=== PATIENT | female | born 1945 | race Caucasian/White ===

== ENCOUNTER 2023-02-03 09:11 | Emergency (ER) | payer MEDICARE, SELFPAY ==
--- NOTE | ~2023-02-03 | XR_ITS ---
XR chest 2V DATE: 02/03/2023 09:41 INDICATION: Cough TECHNIQUE: 2 views COMPARISON: None FINDINGS: Normal heart size. There is aortic calcification and unfolding. No hilar or mediastinal enl argement. Bibasilar discoid atelectasis or scarring, more prominent on the right. The lungs otherwise appear cl ear of infiltrate or consolidation. Slight right pleural effusion is suggested. No pulmonary vascular congestion or pneumothorax. Levoscoliosis and degenerative spurring of the thoracic spine. Osteopenia. IMPRESSION: Bibasilar discoid atelectasis or scarring, greater on the right Reviewed, dictated and finalized at location B. UNICATIONS ENGINEERING TECHNICIAN
--- NOTE | 2023-02-03 09:21 | ED.URI ---
HPI - URI/Sore Throat General Chief Complaint: Upper Respiratory Infection Stated Complaint: Cough/Sore Throat Time Seen by Provider: 02/03/23 09:21 Source: patient and RN notes reviewed History of Present Illness HPI Narrative: Patient is 7-year-old female who presents to urgent care with complaints of cough congestion sore throat hoarseness headache bilateral eyes added. Patient states started Wednesday to take care for cough medication. She has had. Denies any fever, nausea or vomiting. States her cough is productive. Denies any shortness of breath or chest pain. Patient is a nonsmoker. No other acute complaints. No acute distress noted. Patient aware of the plan of care. Some parts of this dictation were generated by voice recognition software and may contain typographical and/or grammatical inaccuracies. Related Data Home Medications Medication Instructions Recorded Confirmed amlodipine 10 mg tablet 10 mg PO DAILY 02/03/23 02/03/23 atorvastatin 20 mg tablet 20 mg PO DAILY 02/03/23 02/03/23 dapagliflozin 10 mg tablet 10 mg PO DAILY 02/03/23 02/03/23 ([facility]) glipizide 10 mg tablet 10 mg PO BID 02/03/23 02/03/23 lisinopril 40 mg tablet 40 mg PO DAILY 02/03/23 02/03/23 metformin 500 mg tablet 500 mg PO DAILY 02/03/23 02/03/23 omeprazole 20 mg capsule,delayed 20 mg PO DAILY 02/03/23 02/03/23 release Allergies Allergy/AdvReac Type Severity Reaction Status Date / Time No Known Allergies Allergy Verified 02/03/23 09:33 Review of Systems Review of Systems: CONSTITUTIONAL: Denies fever, chills, or sweats. EYES: Reports of bilateral eye drainage and itchiness ENT: Reports congestion postnasal drainage CARDIOVASCULAR: Denies chest pain, palpitations, or edema. RESPIRATORY: Reports productive cough without dyspnea GASTROINTESTINAL: Denies abdominal pain, nausea, vomiting, or diarrhea. GENITOURINARY: Denies dysuria or hematuria. SKIN: Denies rash or itching. MUSCULOSKELETAL: Denies back pain, joint pain, or myalgia. NEUROLOGIC: Denies headache, numbness, or weakness. All other systems reviewed are negative, except as documented in HPI. PMFSH Comments At the time of my signature, I reviewed and agree with the nursing past medical, surgical, social, and family history. There is no relevant family history pertinent to the patient complaint. Exam Narrative: GENERAL: This is a well-nourished, well-developed patient, in no apparent distress. HEAD: normocephalic, atraumatic. EYES: PERRL. Sclera clear/white. Bilateral injected conjunctiva with clear to yellow matting/drainage EARS: External ears normal, auditory canals clear and without drainage, TMs normal without perforation. Hearing grossly intact. NOSE: External nose normal with no obvious nasal discharge. Bilateral has had yellow rhinorrhea THROAT: Mucous membranes moist, posterior pharynx clear. Moderate postnasal drainage NECK: Neck supple, non-tender without lymphadenopathy CARDIOVASCULAR: Regular rate and rhythm without murmurs, gallops, or rubs. RESPIRATORY: Clear to auscultation. Diminished bibasilar SKIN: warm, intact with no suspicious lesions or rash, good texture and turgor. NEURO: awake, alert, and oriented to person, place and time. There were no obvious focal neurologic abnormalities. EXTREMITIES: No clubbing, cyanosis, or edema. Course Course Level of Care: Express Care Visit Vital Signs Vital signs: Vital Signs Temperature 98.3 F 02/03/23 09:23 Pulse Rate 118 H 02/03/23 09:23 Respiratory Rate 20 02/03/23 09:23 Blood Pressure 170/76 H 02/03/23 09:23 Pulse Oximetry 96 02/03/23 09:23 Oxygen Delivery Room Air 02/03/23 09:23 Temperature 98.3 F 02/03/23 09:23 Pulse Rate 118 H 02/03/23 09:23 Respiratory Rate 20 02/03/23 09:23 Blood Pressure 170/76 H 02/03/23 09:23 Pulse Oximetry 96 02/03/23 09:23 Oxygen Delivery Room Air 02/03/23 09:23 Reviewed- Patient is informed that they may have pre-hypertension o
[2023-02-03 09:23] VITALS: BP 170/76; PULSE 118; RESP 20; TEMP 36.8; O2SAT 96
== END 2023-02-03 10:03 | disposition home or self-care (01) ==
PROVIDERS: Emergency Provider Nurse Practitioner Family; PCP Internal Medicine
DX: J40 Bronchitis, not specified as acute or chronic (principal); J32.9 Chronic sinusitis, unspecified
CPT/HCPCS: 71046; 87081; 87880; 99203; G0463

== ENCOUNTER 2023-04-30 08:49 | Emergency (ER) | payer MEDICARE, SELFPAY ==
--- NOTE | 2023-04-30 09:05 | ED.ABDPAIN ---
HPI - Abdominal Pain General Chief Complaint: Urogenital-Female Stated Complaint: Abdominal Pain/Right Side Source: patient and RN notes reviewed Limitations: no limitations History of Present Illness HPI narrative: Patient is a 77-year-old female who presents to the [facility] with complaints of right lower quadrant abdominal pain and right flank pain starting this morning. The pain continues to worsen in severity. Patient reports some associated nausea without emesis. Denies diarrhea or blood in the stool. She presents with moderately severe right flank pain but denies dysuria, hematuria, frequency. She has notable right-sided CVA tenderness. She denies known fevers but reports sweats and chills. Related Data Home Medications Medication Instructions Recorded Confirmed amlodipine 10 mg tablet 10 mg PO DAILY 02/03/23 02/03/23 atorvastatin 20 mg tablet 20 mg PO DAILY 02/03/23 02/03/23 dapagliflozin 10 mg tablet 10 mg PO DAILY 02/03/23 02/03/23 (Farxiga) glipizide 10 mg tablet 10 mg PO BID 02/03/23 02/03/23 lisinopril 40 mg tablet 40 mg PO DAILY 02/03/23 02/03/23 metformin 500 mg tablet 500 mg PO DAILY 02/03/23 02/03/23 omeprazole 20 mg capsule,delayed 20 mg PO DAILY 02/03/23 02/03/23 release Allergies Allergy/AdvReac Type Severity Reaction Status Date / Time No Known Allergies Allergy Verified 02/03/23 09:33 Review of Systems Review of Systems: CONSTITUTIONAL: Denies fever, but reports sweats and chills. EYES: Denies visual changes, redness, or discharge. ENT: Denies otalgia and sore throat CARDIOVASCULAR: Denies chest pain, palpitations, or edema. RESPIRATORY: Denies cough or dyspnea. GASTROINTESTINAL: reports right lower quadrant abdominal pain and nausea, but denies vomiting, or diarrhea. GENITOURINARY: Denies dysuria or hematuria. Reports right flank pain. SKIN: Denies rash or itching. MUSCULOSKELETAL: Denies back pain, joint pain, or myalgia. NEUROLOGIC: Denies headache, numbness, or weakness. Pertinent positives per HPI. PMFSH Comments At the time of my signature, I reviewed and agree with the nursing past medical, surgical, social, and family history. There is no relevant family history pertinent to the patient complaint. Exam Narrative: GENERAL: This is a well-nourished, well-developed patient, in no apparent distress. HEAD: normocephalic, atraumatic. EYES: Sclera clear/white. Vision is grossly intact. EARS: External ears normal, auditory canals clear and without drainage. Hearing grossly intact. NOSE: External nose normal with no obvious nasal discharge, nares without redness, no rhinorrhea. THROAT: Mucous membranes moist, posterior pharynx clear. NECK: Neck supple, non-tender without lymphadenopathy, masses or thyromegaly. CARDIOVASCULAR: Regular rate and rhythm without murmurs, gallops, or rubs. RESPIRATORY: Clear to auscultation. Breath sounds equal bilaterally. No wheezes, rales, or rhonchi. GASTROINTESTINAL: Abdomen soft and nondistended. Bowel sounds are active. No hepato-splenomegaly, or palpable masses. No guarding. Right lower quadrant tenderness. SKIN: warm, intact with no suspicious lesions or rash, good texture and turgor. NEURO: awake, alert, and oriented to person, place and time. There were no obvious focal neurologic abnormalities. EXTREMITIES: No clubbing, cyanosis, or edema. No joint tenderness, effusion, or edema noted. BACK: Nontender without deformity or crepitance. Right CVA tenderness. Course Course Level of Care: Express Care Visit Vital Signs Vital signs: Reviewed Transfer Transfered to: [facility]) Transportation: Other (private vehicle) Accepting physician: Dr. Thomas MDM - Abdominal Pain MDM Narrative Medical decision making narrative: Patient's urinalysis reveals she is positive for nitrates, indicating urinary tract infection. Blood also present. However, she is having severe tenderness to the right flank and right lower quadrant. She w
[2023-04-30 09:06] VITALS: BP 131/70; PULSE 120; RESP 16; TEMP 36.8; O2SAT 99
== END 2023-04-30 09:19 | disposition short-term general hospital (02) ==
PROVIDERS: Emergency Provider Nurse Practitioner; PCP Internal Medicine
DX: N39.0 Urinary tract infection, site not specified (principal); B96.20 Unspecified Escherichia coli [E. coli] as the cause of diseases classified elsewhere
CPT/HCPCS: 81003; 87077; 87086; 87186; 99213; G0463

== ENCOUNTER 2025-04-27 13:17 | Outpatient (CLI) | payer MEDICARE, SELFPAY ==
--- NOTE | ~2025-04-27 | MR_ITS ---
MRI of the left hip Clinical history: Pain Technique: Coronal T1-weighted, T2-weighted, and proton-density fat-sat images, and axial T1-weighted and proton-density fat-sat images were acquired through the pelvis. Coronal T2-weighted images and c oronal, axial, and sagittal proton-density fat-sat images were acquired through the left hip. Findings: There is no fracture or avascular necrosis of either hip. There is severe left hip joint os teoarthritis, with diffuse high-grade chondromalacia. There is extensive reactive marrow edema and clemente bchondral cystic change involving the left femoral head and the superior left acetabulum. There are p rominent left femoral head neck junction osteophytes. There is probable extensive degenerative tearin g of the left acetabular labrum. Right hip joint space is intact with mild to moderate chondromalacia of the medial aspect of the right hip joint. SI joints are intact. Visualized musculature about the pelvis and left hip is unremarkable. No muscle atrophy or edema. Jus t tendons are intact. No soft tissue mass or fluid collection. 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 Reviewed, dictated and finalized at location .
--- NOTE | ~2025-04-27 | XR_ITS ---
XR hip LT 2V w AP pelvis 04/27/2025 14:28 Indication: Left hip pain Procedure: 3 views left hip Comparison: No prior studies for comparison. Findings: Severe osteoarthritis of the left hip. No fracture, subluxation or dislocation. There is lo wer lumbar spondylosis partially visualized. There is atherosclerosis of the pelvis. Mild osteitis pu bis. Impression: 1: Severe osteoarthritis of the left hip. Reviewed, dictated and finalized at location A. Impression: 1: Severe osteoarthritis of the left hip.
== END 2025-04-27 13:18 | disposition home or self-care (01) ==
PROVIDERS: PCP Internal Medicine; Visit Provider Physician Assistant
DX: M16.12 Unilateral primary osteoarthritis, left hip (principal)
CPT/HCPCS: 73502; 73721

== ENCOUNTER 2025-05-07 11:01 | Emergency (ER) | payer MEDICARE, SELFPAY ==
[2025-05-07 11:06] VITALS: BP 131/60; PULSE 118; RESP 20; TEMP 36.6; O2SAT 96
--- NOTE | 2025-05-07 11:28 | ED.FEMALEGU ---
HPI - Female Genitourinary General Chief complaint: Urogenital-Female Stated complaint: Urinary Problems Time Seen by Provider: 05/07/25 11:33 Source: patient and RN notes reviewed Mode of arrival: ambulatory Limitations: no limitations History of Present Illness HPI Narrative: 79-year-old female presents with concern for urinary tract infection. Reports frequency, dysuria that started yesterday. She reports she finished Bactrim 10 days ago for urinary tract infection that she was seen in the ER for. She reports bilateral low back pain. She denies chills, fever, sweats. Denies nausea vomiting. MD elicited complaint: UTI Related Data Home Medications ?Medication ?Instructions ?Recorded ?Confirmed ?Last Taken ?Type amlodipine 10 mg tablet 10 mg PO DAILY 02/03/23 04/30/23 Unknown History atorvastatin 20 mg tablet 20 mg PO DAILY 02/03/23 04/30/23 Unknown History dapagliflozin propanediol 10 mg 10 mg PO DAILY 02/03/23 04/30/23 Unknown History tablet (Farxiga) glipizide 10 mg tablet 10 mg PO BID 02/03/23 04/30/23 Unknown History lisinopril 40 mg tablet 40 mg PO DAILY 02/03/23 04/30/23 Unknown History metformin 500 mg tablet 500 mg PO DAILY 02/03/23 04/30/23 Unknown History omeprazole 20 mg capsule,delayed 20 mg PO DAILY 02/03/23 04/30/23 Unknown History release Allergies Allergy/AdvReac Type Severity Reaction Status Date / Time No Known Allergies Allergy Verified 05/07/25 11:10 Review of Systems Review of Systems: CONSTITUTIONAL: Denies malaise, chills, sweats, or fever. CARDIOVASCULAR: Denies chest pain, palpitations, or edema. RESPIRATORY: Denies cough or dyspnea. GASTROINTESTINAL: Denies abdominal pain, nausea, vomiting, diarrhea GENITOURINARY: Reports dysuria, frequency, urgency, low back pain. Denies hematuria. SKIN: Denies rash or itching. MUSCULOSKELETAL: Reports back pain. Denies myalgia. All systems reviewed & are unremarkable except as noted in HPI and below PMFSH Comments At time of signature, agree with nursing past medical, surgical, social and family history. There is no relevant family history pertinent to the presenting complaint Exam Narrative: GENERAL: Well-appearing, well-nourished, and in no acute distress. HEAD: Normocephalic. EYES: PERRLA, conjunctivae clear. NECK: Supple. No lymphadenopathy CHEST: Clear to auscultation. No respiratory distress. HEART: Regular rate and rhythm. ABDOMEN: Soft, nontender upon palpation, nondistended, normal active bowel sounds, no palpable or pulsatile masses, no guarding. Bilateral CVA tenderness SKIN: Warm, dry, no rash. NEURO: Alert and oriented x3. PSYCH: Normal mood and affect Course Course Emergency Course: Patient is aware of diagnosis, understands and agrees to treatment plan. Anticipatory guidance given. Patient agrees to follow-up as directed and is aware of reasons to seek care at the emergency department. Portions of this record may have been created with voice recognition software Level of Care: Express Care Visit Vital Signs Vital signs: Vital Signs Temperature 97.8 F 05/07/25 11:06 Pulse Rate 118 H 05/07/25 11:06 Respiratory Rate 20 05/07/25 11:06 Blood Pressure 131/60 05/07/25 11:06 Pulse Oximetry 96 05/07/25 11:06 Oxygen Delivery Room Air 05/07/25 11:06 Temperature 97.8 F 05/07/25 11:06 Pulse Rate 118 H 05/07/25 11:06 Respiratory Rate 20 05/07/25 11:06 Blood Pressure 131/60 05/07/25 11:06 Pulse Oximetry 96 05/07/25 11:06 Oxygen Delivery Room Air 05/07/25 11:06 Reviewed. MDM - Female Genitourinary MDM Narrative Medical decision making narrative: Exam findings and UA show no acute concerns or changes; patient is non-toxic appearing and is in no distress. Patient is appropriate for outpatient treatment and follow-up. Differential Diagnosis Differential diagnosis: Likely urinary tract infection and cystitis Critical Care Time Critical Care Time Critical Care Time: No Discharge Plan Discharge Clinical Impression: Urinary tract infection Patient Disposition: Home Condition: Stable Instructions: Antibiotic Form, Urinary Tract Infection in Older Adults (ED) Additional Instructions: We will send a urine culture to the lab; if the culture identifies an organism that the prescribed antibiotic will not treat, you will receive a phone call from an urgent care staff member and an appropriate antibiotic will be prescribed. -Your symptoms should begin to improve within a day of starting antibiotics. But you should finish all the antibiotic pills you get. Otherwise your infection might come back. -Also recommend: increase water intake. Tylenol/ibuprofen as needed for pain or fever -Follow-up with your primary care provider for urine recheck or seek ER visit if condition worsens with high fever, nausea, vomiting and severe back pain. Patient Language: Algerian Prescriptions: New ciprofloxacin HCl 500 mg tablet 500 mg PO Q12H 7 Days Qty: 14 0RF No Action metformin 500 mg tablet 500 mg PO DAILY atorvastatin 20 mg tablet 20 mg PO DAILY amlodipine 10 mg tablet 10 mg PO DAILY glipizide 10 mg tablet 10 mg PO BID lisinopril 40 mg tablet 40 mg PO DAILY omeprazole 20 mg capsule,delayed release(DR/EC) 20 mg PO DAILY Farxiga 10 mg tablet 10 mg PO DAILY Follow-up/Referrals: Melo,Mina Piña MD [Primary Care Provider] - Time of Disposition: 11:38
[2025-05-07 11:37] LABS: EDUAAPPEAR Cloudy; EDUABILI Negative (Negative); EDUABLOOD Trace (Negative); EDUACOLOR1 Yellow; EDUAGLUCOSE 2+ (Negative); EDUAKETONE Negative (Negative); EDUALEUKO 1+ (Negative); EDUANITRATE Positive (Negative); EDUAPH 5.5; EDUAPROTEIN Negative (Negative); EDUAUROBILI 0.2
--- OUTSIDE RECORDS SUMMARY | 2025-05-07 12:31 | XMS_ITS | Encounter Summary ---
Author Organization [facility] Address [address] [place] [address] Phone Care Team Providers Care Altitude Chamber Technician Name Role Phone Mina Alejo MD Primary Care Provider Jared Dee MD Unavailable Reason for Visit * Reason Comments Medication Refill Encounter Details Date Type Department Care Team (Late st Contact Info) Description 11/16/2020 Refill [facility] - Internal Medicine - [place] [address] [place] [address] Mina Alejo MD [address] [place] [address] Medication Refill Social History Tobacco Use Types Packs/Day Years Used Date Smoking Tobacco: Never Smokeless Tobacco: Never PHQ-2 Answer Date Recorded PHQ-2 Score 0 08/30/2020 Comments No Sex and Gender Information Value Date Recorded Sex Assigned at Not on file Legal Sex Female 3:36 PM CDT Gender Identity Not on file Sexual Orientation Not on file documented as of this encounter Miscellaneous Notes * Telephone Encounter - Tami Alvarez RN - 11/18/2020 8:59 AM CST Please review and sign. SOLDERER documented in this encounter Plan of Treatment Upcoming Encounters Date Type Department Care Team (Late st Contact Info) Description 05/31/2025 10:45 AM CDT Office Visit [facility] - Internal Medicine [facility] [address] [place] [address] Mina Alejo MD [address] [place] [address] documented as of this encounter Visit Diagnoses Not on filedocumented in this encounter Additional Health Concerns Infection Onset Date Last Indicated Resolved Time COVID - 19 04/04/2025 04/04/2025 04/04/2025 1:08 AM CDT Assessment Noted Time PHQ-9 Depression Total Score: 0 08/30/20 20 11:00 AM CDT documented as of this encounter Care Teams Altitude Chamber Technician Relationship Specialty Start Date End Date Mina Alejo MD [address] [place] [address] PCP - General Internal Medicine 06/13/18 Jared Dee MD [id number] [address] Consulting Physician Colon and Rectal Surgery 05/06/22 documented as of this encounter
--- OUTSIDE RECORDS SUMMARY | 2025-05-07 12:31 | XMS_ITS | Encounter Summary ---
Author Organization [facility] Address [address] [place] [address] Phone Care Team Providers Care Pipe Fitter Ammonia Name Role Phone Mina Alejo MD Primary Care Provider [phone] Jared Dee MD Unavailable Encounter Details Date Type Department Care Team (Late st Contact Info) Description 04/12/2025 Results Follow-Up [facility] [address] [place] [address] Ailyn Díaz APRN, AT HOME INDEPENDENT CALL CENTER AGENT [address] [place] [address] Culture, Urine Social History Tobacco Use Types Packs/Day Years Used Date Smoking Tobacco: Never Passive Smoke Exposure: Past Smokeless Tobacco: Never Alcohol Use Standard Drinks/Week Comments Not Currently 0 (1 standard drink = 0.6 oz pur e alcohol) [facility] Utilities Answer Date Recorded In the past 12 months has [employer] electric, gas, oil, or water company threatened to shut off services in your home? No 01/27/2024 Social Connection and Isolation Panel Answer Date Recorded In a typical week, how many times do you talk on the phone with family, friends, or neighbors? More than three times a week 01/27/2024 How often do you get togethe r with friends or relatives? More than three times a week 01/27/2024 How often do you attend [facility] or yarsanism services? More than 4 times per year 01/27/2024 Do you belong to any clubs o r organizations such as oriental orthodox groups, unions, fraternal or athletic groups, or school groups? Yes 01/27/2024 How often do you attend meet ings of the clubs or organizations you belong to? More than 4 times per year 01/27/2024 Are you , , di vorced, , never , or living with a partner? 01/27/2024 AUDIT-C Answer Date Recorded Q1: How often do you have a drink containing alcohol? Never 01/27/2024 Q2: How many drinks containi ng alcohol do you have on a typical day when you are drinking? Patient does not drink Q3: How often do you have si x or more drinks on one occasion? Never 01/27/2024 Overall Financial Resource Strain (CARDIA) Answe r Date Recorded How hard is it for you to pa y for the very basics like food, housing, medical care, and heating? Not hard at all 01/27/2024 PHQ-2 Answer Date Recorded Total Score - Questions 1-9 0 12/2024 [facility] - Occupational Stress Questionnaire Answer Date Recorded Do you feel stress - tense, restless, nervous, or anxious, or unable to sleep at night because your mind is troubled all the time - these days? Not at all 01/27/2024 Exercise Vital Sign Answer Date Recorde d On average, how many days pe r week do you engage in moderate to strenuous exercise (like a brisk walk)? 0 days 01/27/2024 On average, how many minutes do you engage in exercise at this level? 0 min 01/27/2024 Hunger Vital Sign Answer Date Recorded Within the past 12 months, y ou worried that your food would run out before you got the money to buy more. Never true 01/27/20 24 Within the past 12 months, t he food you bought just didn't last and you didn't have money to get more. Never true 01/27/2024 PRAPARE - Transportation Answer Date Re corded In the past 12 months, has l ack of transportation kept you from medical appointments or from getting medications? No 12/31 In the past 12 months, has l ack of transportation kept you from meetings, work, or from getting things needed for daily living? No 01/27/2024 Housing Stability Vital Sign Answer Domenico e Recorded In the last 12 months, was t here a time when you were not able to pay the mortgage or rent on time? No 01/27/2024 In the last 12 months, how many places have you lived? 3 01/27/2024 In the last 12 months, was t here a time when you did not have a steady place to sleep or slept in a jail (including now)? No 01/27/2024 Education Answer Date Recorded What is the highest level of school you have completed or the highest degree you have received? Associate degree: occupational, technical, or vocational program 04/21/2023 Sexually Active Control Partners Comments Not Currently Male Comments No Sex and Gender Information Value Date Recorded Sex Assigned at Not on file Legal Sex Female 3:36 PM CDT Gender Identity Not on file Sexual Orientation Not on file documented as of this encounter Plan of Treatment Upcoming Encounters Date Type Department Care Team (Late st Contact Info) Description 05/31/2025 10:45 AM CDT Office Visit [facility] - Internal Medicine [facility] [address] [place] [address] Mina Alejo MD [address] [place] [address] documented as of this encounter Visit Diagnoses Not on filedocumented in this encounter Additional Health Concerns Assessment Noted Time PHQ-9 Depression Total Score: 0 11/30/19 25 10:21 AM BOLT MAKER documented as of this encounter Care Teams Pipe Fitter Ammonia Relationship Specialty Start Date End Date Mina Alejo MD [address] [place] [address] PCP - General Internal Medicine 06/13/18 Jared Dee MD [address] [address] Consulting Physician Colon and Rectal Surgery 05/06/22 documented as of this encounter
--- OUTSIDE RECORDS SUMMARY | 2025-05-07 12:31 | XMS_ITS | Encounter Summary ---
Author Organization [facility] Address [address] [place] [address] Phone Care Team Providers Care Carpentry Teacher Name Role Phone Mina Alejo MD Primary Care Provider Jared Dee MD Unavailable Reason for Visit * Reason Comments Medication Refill Encounter Details Date Type Department Care Team (Late st Contact Info) Description 12/16/2020 Refill [facility] - [facility] - [place] [address] [place] [address] Mina Alejo MD [address] [place] [address] Medication Refill Social History Tobacco Use Types Packs/Day Years Used Date Smoking Tobacco: Never Smokeless Tobacco: Never PHQ-2 Answer Date Recorded Total Score - Questions 1-9 0 0 03/2021 Comments No Sex and Gender Information Value Date Recorded Sex Assigned at Not on file Legal Sex Female 3:36 PM CDT Gender Identity Not on file Sexual Orientation Not on file COVID-19 Exposure Response Date Recorded In the last month, have you been in contact with someone who was confirmed or suspected to have Coronavirus / COVID-19? No / Unsure 12/03/2020 10:46 AM DATA CENTER OPERATOR documented as of this encounter Miscellaneous Notes * Telephone Encounter - Tami Alvarez RN - 12/17/2020 8:21 AM CST Please review and sign. CENTER OPERATOR documented in this encounter Plan of Treatment Upcoming Encounters Date Type Department Care Team (Late st Contact Info) Description 05/31/2025 10:45 AM CDT Office Visit [facility] - Internal Medicine [facility] [address] [place] [address] Mina Alejo MD [address] [place] [address] documented as of this encounter Visit Diagnoses Not on filedocumented in this encounter Additional Health Concerns Infection Onset Date Last Indicated Resolved Time COVID - 19 04/04/2025 04/04/2025 04/04/2025 1:08 AM CDT Assessment Noted Time PHQ-9 Depression Total Score: 0 12/03/19 11:00 AM DATA CENTER OPERATOR documented as of this encounter Care Teams Carpentry Teacher Relationship Specialty Start Date End Date Mina Alejo MD [address] [place] [address] PCP - General Internal Medicine 06/13/18 Jared Dee MD [address] [address] Consulting Physician Colon and Rectal Surgery 05/06/22 documented as of this encounter
--- OUTSIDE RECORDS SUMMARY | 2025-05-07 12:31 | XMS_ITS | Encounter Summary ---
Author Hub Preferred Language Faroese Marital Status Gnosticist Affiliation Unknown Race White Ethnic Group Not or Lati no Author Organization [facility] Address [address] [place] [address] Phone Care Team Providers Care Heel Seat Flap Stapler Name Role Phone Mina Alejo MD Primary Care Provider Jared Dee MD Unavailable Reason for Referral * Radiology Services (Routine) - Closed Specialty Diagnoses / Procedures Referred By Contac t Referred To Contact Radiology Diagnoses Pre-op testing Procedures EKG 12 LEAD Charlie Bangura MD [address] [place] [address] Phone: tel: fax: Referral ID Status Reason Start Date Expiration Date Visits Re quested Visits Authorized [id number] Closed 10/09/2021 1 1 [place] OFFICE ADMINISTRATOR Encounter Details Date Type Department Care Team (Late st Contact Info) Description 10/09/2021 [facility] 1 [place] [id number] Charlie Bangura MD [address] [place] [address] Pre-op testing (Primary Dx) Social History Tobacco Use Types Packs/Day Years Used Date Smoking Tobacco: Never Smokeless Tobacco: Never Alcohol Use Standard Drinks/Week Comments Not Currently 0 (1 standard drink = 0.6 oz pur e alcohol) PHQ-2 Answer Date Recorded Total Score - Questions 1-9 0 04/29 Sexually Active Control Partners Comments Yes Comments No Sex and Gender Information Value Date Recorded Sex Assigned at Not on file Legal Sex Female 3:36 PM CDT Gender Identity Not on file Sexual Orientation Not on file COVID-19 Exposure Response Date Recorded In the last month, have you been in contact with someone who was confirmed or suspected to have Coronavirus / COVID-19? No / Unsure 10/08/2021 11:37 AM MEDICAL OFFICE ADMINISTRATOR documented as of this encounter Plan of Treatment Upcoming Encounters Date Type Department Care Team (Late st Contact Info) Description 05/31/2025 10:45 AM CDT Office Visit [facility] - Internal Medicine [facility] [address] [place] [address] Mina Alejo MD [address] [address] documented as of this encounter Results * EKG 12 LEAD (10/13/2021 10:48 AM MEDICAL OFFICE ADMINISTRATOR) Ventricular Rate BPM EXTERNAL EKG Atrial Rate BPM EXTERNAL EKG P-R Interval 162 ms EXTERNAL EKG QRS Duration 84 ms EXTERNAL EKG Q-T Duration 318 ms EXTERNAL EKG QTC CALCULATION 406 ms EXTERNAL EKG P [place] 57 degrees EXTERNAL EKG R [place] 66 degrees EXTERNAL EKG T [place] 66 degrees EXTERNAL EKG 10/13/2021 10:4 8 AM MEDICAL OFFICE ADMINISTRATOR Impressions EXTERNAL EKG - 10/14/2021 11:08 AM MEDICAL OFFICE ADMINISTRATOR Sinus rhythm Possible inferior infarct - age undetermined Comparison Summary: No serial comparison made Summary: Abnormal ECG Confirmed by Bernice Baker [id number] on 10/14/2021 11:08:03 AM Narrative Procedure Note Kayleigh Queen MD - 10/14/2021 IMPRESSION: Sinus rhythm Possible inferior infarct - age undetermined Comparison Summary: No serial comparison made Summary: Abnormal ECG Confirmed by Bernice Baker [id number] on 10/14/2021 11:08:03 AM Charlie Bangura MD IMG ECG ORDERABLES Final Resu lt EXTERNAL EKG * (ABNORMAL) HEMOGLOBIN & HEMATOCRIT (H&H) (10/13/2021 10:42 AM MEDICAL OFFICE ADMINISTRATOR) HEMOGLOBIN (HGB) 15.8 12.0 - 15.8 g/dL 10/13/2021 1:19 PM MEDICAL OFFICE ADMINISTRATOR [facility] HEMATOCRIT (HCT) 48.7(H) 36.0 - 47.0 % 10/13/2021 1:19 PM MEDICAL OFFICE ADMINISTRATOR [facility] Blood Venipuncture / Unknown 10/13/2021 10:42 AM MEDICAL OFFICE ADMINISTRATOR 10/13/2021 1:06 PM MEDICAL OFFICE ADMINISTRATOR Charlie Banugra MD HEMATOLOGY ORDERABLES Final R esult Performing Organization Address City/[facility]/ZIP Co de Phone Number [facility] [address] [place] [address] documented in this encounter Visit Diagnoses Diagnosis Pre-op testing- Primary Preoperative examination, unspecified Pre-op testing Preoperative examination, unspecified documented in this encounter Additional Health Concerns Infection Onset Date Last Indicated Resolved Time COVID - 19 04/04/2025 04/04/2025 04/04/2025 1:08 AM CDT Assessment Noted Time PHQ-9 Depression Total Score: 0 05/12/20 21 2:00 PM CDT documented as of this encounter Care Teams Heel Seat Flap Stapler Relationship Specialty Start Date End Date Mina Alejo MD [address] [place] [address] PCP - General Internal Medicine 06/13/18 Jared Dee MD [address] [address] Consulting Physician Colon and Rectal Surgery 05/06/22 documented as of this encounter
--- OUTSIDE RECORDS SUMMARY | 2025-05-07 12:31 | XMS_ITS | Encounter Summary ---
Author Organization [facility] Address [address] [place] [address] Phone Care Team Providers Care Senior Software Development Manager Name Role Phone Mina Alejo MD Primary Care Provider Jared Dee MD Unavailable Reason for Visit * Reason Comments Medication Refill Encounter Details Date Type Department Care Team (Late st Contact Info) Description 03/03/2021 Refill [facility] - [place] [address] [place] [address] Mina Alejo MD [address] [place] [address] Medication Refill Social History Tobacco Use Types Packs/Day Years Used Date Smoking Tobacco: Never Smokeless Tobacco: Never PHQ-2 Answer Date Recorded Total Score - Questions 1-9 0 01/0 03/2021 Comments No Sex and Gender Information Value Date Recorded Sex Assigned at Not on file Legal Sex Female 3:36 PM CDT Gender Identity Not on file Sexual Orientation Not on file COVID-19 Exposure Response Date Recorded In the last month, have you been in contact with someone who was confirmed or suspected to have Coronavirus / COVID-19? No / Unsure 03/04/2021 10:53 AM CDT documented as of this encounter Miscellaneous Notes * Telephone Encounter - Tami Alvarez RN - 03/04/2021 7:52 AM CDT Please review and sign. documented in this encounter Plan of Treatment Upcoming Encounters Date Type Department Care Team (Late st Contact Info) Description 05/31/2025 10:45 AM CDT Office Visit [facility] - Internal Medicine [place] [address] [place] [address] Mina Alejo MD [address] [place] [address] documented as of this encounter Visit Diagnoses Not on filedocumented in this encounter Additional Health Concerns Infection Onset Date Last Indicated Resolved Time COVID - 19 04/04/2025 04/04/2025 04/04/2025 1:08 AM CDT Assessment Noted Time PHQ-9 Depression Total Score: 0 12/03/19 21 11:00 AM NAVAL AIRCREWMAN HELICOPTER documented as of this encounter Care Teams Senior Software Development Manager Relationship Specialty Start Date End Date Mina Alejo MD [address] [place] [address] PCP - General Internal Medicine 06/13/18 Jared Dee MD [address] [address] Consulting Physician Colon and Rectal Surgery 05/06/22 documented as of this encounter
--- OUTSIDE RECORDS SUMMARY | 2025-05-07 12:31 | XMS_ITS | Encounter Summary ---
Author Organization [facility] Address [address] [place] [address] Phone Care Team Providers Care Senior Project Controls Specialist Name Role Phone Mina Alejo MD Primary Care Provider Jared Dee MD Unavailable Encounter Details Date Type Department Care Team (Latest Contact Info) Description 10/08/2021 [facility] [address] [place] [address] Juan Graf MD [address] [place] [address] Pre-op testing (Primary Dx) Social History Tobacco [...] COVID-19? No / Unsure 10/08/2021 11:37 AM TERRAZZO GRINDER documented as of this encounter Plan of Treatment Upcoming Encounters Date Type Department Care Team (Late st Contact Info) Description 05/31/2025 10:45 AM CDT Office Visit [facility] - Internal Medicine - [place] [address] [place] [phone] Mina Alejo MD [address] [place] [address] documented as of this encounter Results * SARS-COV-2 BY MOLECULAR (10/13/2021 10:42 AM TERRAZZO GRINDER) SARSCOV2 NOT DETECTED (Referen ce Range for this test is Not Detected ) [facility] THERMOFISHER FAST DX 10/14/2021 11:38 AM TERRAZZO GRINDER [facility] Comment:This test was perfor med by a RT-PCR method. Other NASOPHARYNGEAL STRUCTURE / Unknown Non-Phlebotomy Collection / Unknown 10/13/2021 10:42 AM TERRAZZO GRINDER 10/13/2021 1:21 PM TERRAZZO GRINDER Narrative [facility] - 10/14/2021 11:38 AM TERRAZZO GRINDER Authorized Fact Sheets about this test for providers and patients are available at: https://www.fda.gov/medical-devices/yezvqnzbx-ojcdaeffgt-gliavwa-devices/emergen cy-us e-authorizations us Juan Graf MD MICROBIOLOGY - GENERAL ORDERABLE S Final Result [facility] [address] [place] [address], documented in this encounter Visit Diagnoses Diagnosis Pre-op testing- Primary Preoperative examination, unspecified documented in this encounter Additional Health Concerns Infection Onset Date Last Indicated Resolved Time COVID - 19 04/04/2025 04/04/2025 04/04/2025 1:08 AM CDT Assessment Noted Time PHQ-9 Depression Total Score: 0 05/12/20 21 2:00 PM CDT documented as of this encounter Care Teams Senior Project Controls Specialist Relationship Specialty Start Date End Date Mina Alejo MD [address] [place] [address] PCP - General Internal Medicine 06/13/18 Jared Dee MD [address] [address] Consulting Physician Colon and Rectal Surgery 05/06/22 documented as of this encounter
--- OUTSIDE RECORDS SUMMARY | 2025-05-07 12:31 | XMS_ITS | Encounter Summary ---
Author Organization [facility] Address [address] [place] [address] Phone Care Team Providers Care Lead Medical Technologist Name Role Phone Mina Alejo MD Primary Care Provider [phone] Jared Dee MD Unavailable Reason for Visit * Reason Comments Medication Refill Encounter Details Date Type Department Care Team (Late st Contact Info) Description 03/10/2024 Refill [facility] - Internal Medicine - [place] [address] [place] [address] Mina Alejo MD [address] [place] [address] Medication Refill Social History Tobacco Use Types Packs/Day Years Used Date Smoking Tobacco: Never Passive Smoke Exposure: Past Smokeless Tobacco: Never Alcohol Use Standard Drinks/Week Comments Not Currently 0 (1 standard drink = 0.6 oz pur e alcohol) [facility] Utilities Answer Date Recorded In the past 12 months has [employer], gas, oil, or water company threatened to [...] week 01/27/2024 How often do you attend chur ch or taoism services? More than 4 times per year 01/27/2024 Do you belong to any clubs o r organizations such as religion groups, unions, fraternal or athletic groups, or [...] Recorded Total Score - Questions 1-9 0 12/31 [facility] [place] of Occupat ional Health - Occupational Stress Questionnaire Answer Date Recorded [...] place to sleep or slept in a correction (including now)? No 01/27/2024 Education Answer Date [...] encounter Miscellaneous Notes * Telephone Encounter - Nadja De Leon RN - 03/11/2024 2:39 PM CDT duplicates documented in this encounter Plan of Treatment Upcoming Encounters Date Type Department Care Team (Late st Contact Info) Description 05/31/2025 10:45 AM CDT Office Visit [facility] - Internal Medicine - [place] [address] [place] [address] Mina Alejo MD [address] [place] [address] documented as of this encounter Visit Diagnoses Not on filedocumented in this encounter Additional Health Concerns Infection Onset Date Last Indicated Resolved Time COVID - 19 04/04/2025 04/04/2025 04/04/2025 1:08 AM CDT Assessment Noted Time PHQ-9 Depression Total Score: 0 01/27/20 24 1:26 PM AMMUNITION SUPERVISOR documented as of this encounter Care Teams Lead Medical Technologist Relationship Specialty Start Date End Date Mina Alejo MD [address] [place] [address] PCP - General Internal Medicine 06/13/18 Jared Dee MD [address] [address] Consulting Physician Colon and Rectal Surgery 05/06/22 documented as of this encounter
--- OUTSIDE RECORDS SUMMARY | 2025-05-07 12:31 | XMS_ITS | Encounter Summary ---
Author Organization [facility] Address [address] [place] [address] Phone Care Team Providers Care Steam Hammer Operator Name Role Phone Mina Alejo MD Primary Care Provider Jared Dee MD Unavailable Reason for Visit * Reason Comments Medication Refill Encounter Details Date Type Department Care Team (Late st Contact Info) Description 01/02/2021 Refill [facility] - [facility] Medicine - [place] [address] [place] [address] Mina Alejo MD [address] [place] [address] Medication Refill Social History Tobacco [...] COVID-19? No / Unsure 12/03/2020 10:46 AM TAKE DOWN INSPECTOR documented as of this encounter Miscellaneous Notes * Telephone Encounter - Tami Alvarez RN - 01/02/2021 10:15 AM TAKE DOWN INSPECTOR Please review and sign. DOWN INSPECTOR documented in this encounter Plan of Treatment Upcoming Encounters Date Type Department Care Team (Late st Contact Info) Description 05/31/2025 10:45 AM CDT Office Visit [facility] - Internal Medicine [place] [address] [place] [address] Mina Alejo MD [address] [place] [address] documented as of this encounter Visit Diagnoses Not on filedocumented in this encounter Additional Health Concerns Infection Onset Date Last Indicated Resolved Time COVID - 19 04/04/2025 04/04/2025 04/04/2025 1:08 AM CDT Assessment Noted Time PHQ-9 Depression Total Score: 0 12/03/19 21 11:00 AM TAKE DOWN INSPECTOR documented as of this encounter Care Teams Steam Hammer Operator Relationship Specialty Start Date End Date Mina Alejo MD [address] [place] [address] PCP - General Internal Medicine 06/13/18 Jared Dee MD #[address] [address] Consulting Physician Colon and Rectal Surgery 05/06/22 documented as of this encounter
--- OUTSIDE RECORDS SUMMARY | 2025-05-07 12:31 | XMS_ITS | Clinical Summary ---
Author Organization [facility] Address [address] [place] [address] Phone Care Team Providers Care Child Support Case Officer Name Role Phone Mina Alejo MD Primary Care Provider Jared Dee MD Unavailable Allergies Active Allergy Reactions Criticality Noted Date Comments Metformin Diarrhea 03/13/2016 DIARRHEA IF MORE THAN 500MG/DAY Medications ASPIRIN 81 PO Take 81 mg by mouth daily. 1 DAILY Active Cholecalciferol (Vitamin D3) 1000 UNIT Tablet Take 25 mcg by mouth daily. Active Ascorbic Acid (Vitamin C) 250 MG Tablet Take 500 mg by mouth daily. Active BIOTIN FORTE PO Take 5,000 mcg by mouth daily. Active Blood Glucose Monitoring Suppl (OneTouch Verio) w/Device Kit 1 Kit by Does not apply route daily. Dx: E11.9 1 Kit 2 Active fluticasone (FLONASE) 50 MCG/ACT Suspension SPRAY 2 SPRAYS INTO EACH NOSTRIL DAILY 3 Active loratadine-pseu doephedrine (Claritin-D 24 Hour) 10-240 MG TABLET SR 24 HR Take 1 Tablet by mouth daily. Active Lancets (OneTouch Delica Plus [id number]) [place] USE 1 LANCET ONCE DAILY E11.9 100 Each 3 4 Active OneTouch Verio Strip 1 STRIP BY SUBCUTANEOUS ROUTE DAILY. DX:E11.9 TYPE 2 DM NON INSULIN DEP 100 Strip 3 4 Active cyanocobalamin 1000 MCG Tablet Take 1,000 mcg by mouth daily. Active Dapagliflozin Propanediol (Farxiga) 10 MG Tablet Take 1 Tablet by mouth daily. 90 Tablet 3 5 Active amLODIPine (NORVASC) 10 MG Tablet Take 1 Tablet by mouth daily. 90 Tablet 3 5 Active atorvastatin (LIPITOR) 20 MG Tablet Take 1 Tablet by mouth nightly. 90 Tablet 1 5 Active glipiZIDE (GLUCOTROL) 10 MG Tablet Take 1 Tablet by mouth 2 times daily. 180 Tablet 3 5 Active lisinopril (PRINIVIL, ZESTRIL) 40 MG Tablet Take 1 Tablet by mouth daily. 90 Tablet 3 5 Active metFORMIN (GLUCOPHAGE) 500 MG Tablet Take 1 Tablet by mouth daily. 90 Tablet 3 5 Active omeprazole (PriLOSEC) 20 MG CAPSULE DELAYED RELEASE Take 1 Capsule by mouth daily. 90 Capsule 3 5 Active ondansetron (ZOFRAN-ODT) 4 MG TABLET DISPERSIBLE Take 1 Tablet by mouth every 6 hours as needed for Nausea - 1st line. 10 Tablet 5 Active sulfamethoxazol e-trimethoprim DS (Bactrim DS) 800-160 MG TabletIndicatio ns:Urinary Tract Infection Take 1 Tablet by mouth 2 times daily for 7 days. 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 07/22/2023 Allergic rhinitis 04/21/2023 Trigger finger, left middle finger 10/16/2021 Heart murmur 08/30/2020 GERD without esophagitis 12/04/2016 Low back pain 12/04/2016 Type 2 diabetes mellitus wit h complication, without long-term current use of insulin 06/07/2015 Essential hypertension, benign 06/07/2015 Mixed hyperlipidemia 06/07/2015 Resolved Problems Problem Noted Date Diagnosed Date Resolved Date Positive colorectal cancer s creening using Cologuard test 12/24/2021 08/28/2024 Encounters Date Type Department Care Team Description 04/12/2025 [facility] [address] [place] [address] Ailyn Díaz APRN, BILL ADJUSTER Culture, Urine 04/08/2025 [facility]phone [facility] [address] [place] [address] Toño Cisneros, FUEL ASSEMBLER Follow-up (Urine Culture ) 04/04/2025 12:06 AM CDT - 04/04/2025 3:11 AM CDT Emergency [facility] Emergency [address] [place] [address] Bill Eid MD Vomiting and diarrhea Discharge Disposition: Discharged to home or Selfcare 04/04/2025 Travel 04/02/2025 Results Follow-Up [facility] Internal Medicine [facility] [address] [place] [address] Mina Alejo MD MRI ABDOMEN W/WO CONTRAST 03/27/2025 8:32 AM CDT - 03/27/2025 11:59 PM CDT Hospital Encounter [facility] MRI [address] [place] [address] Mina Alejo MD Discharge Disposition: Discharged to home or Selfcare 03/27/2025 Travel 03/01/2025 10:15 AM CDT Office Visit [facility] Internal Medicine [facility] [place] [address] Mina Alejo MD Type 2 diabetes mellitus with complication, without long-term current use of insulin (HCC) (Primary Dx); Essential hypertension, benign; Mixed hyperlipidemia; Pancreatic mass; Allergic rhinitis due to other allergic trigger, unspecified seasonality Discharge Disposition: Discharged to home or Selfcare 03/01/2025 Travel from Last 3 Months Immunizations Immunization Administration Dates Next Due Influenza Vaccine 08/01/2019 Influenza Vaccine, Quadrivalent, PF 10/14/2022,1 ,08/30/2020 Influenza, Quadrivalent, Adjuvanted 09/10/2023 Influenza, Trivalent, Adjuvanted, PF 08/28/2024 Influenza, high-dose, trivalent, PF 11/05/2023 Pneumococcal conjugate PCV20 , polysaccharide [id number] conjugate, adjuvant, PF 11/05/2023 RSV, Recombinant, Protein Campos bunit Rsvpref, Adjuvant Recon (Arexvy) 11/05/2023,11/01/2023 TDAP Vaccine 05/12/2021 Zoster Vaccine Recombinant 01/11/2024,,11/05/2023,11/01 Family History Medical History Relation Name Comments Diabetes Daughter 1 Heart Disease Daughter 1 Diabetes Daughter 2 Heart Disease Daughter 2 Heart Surgery Daughter 2 Chronic Obstructive Pulmonary Disease Daughter 3 Congestive Heart Failure Father Heart Attack Father Other-comment Half-Brother MVA No Known Problems Maternal Grandfather Heart Disease Maternal Grandmother Cancer Mother Congestive Heart Failure Mother Lung Cancer Mother No Known Problems Paternal Grandfather No Known Problems Paternal Grandmother Heart Disease Sister Relation Name Status Comments Daughter 1 Alive Daughter 2 Alive Daughter 3 Alive Father Half-Brother Maternal Grandfather Maternal Grandmother Mother Paternal Grandfather Paternal Grandmother Sister Alive Social History Tobacco Use Types Packs/Day Years Used Date Smoking Tobacco: Never Passive Smoke Exposure: Past Smokeless Tobacco: Never Tobacco Cessation:Counseling Given: No Alcohol Use Standard Drinks/Week Comments Not Currently 0 (1 standard drink = 0.6 oz pur e alcohol) [facility] Utilities Answer Date Recorded In the past 12 months has INTERNET BUSINESS TRADER, gas, oil, or water [employer] threatened to shut off services in your [...] often do you attend chur ch or mormonism services? More than 4 times per year 01/27/2024 Do you belong to any clubs o r organizations such as amish groups, unions, fraternal or athletic groups, or [...] Total Score - Questions 1-9 0 12/2024 [facility] - Occupational Stress [...] place to sleep or slept in a fpc (including now)? No 01/27/2024 Education Answer Date [...] on file Sexual Orientation Not on file Last Filed Vital Signs Vital Sign Reading Time Taken Comments Blood Pressure 124/59 04/04/2025 3:00 AM CDT Pulse 95 04/04/2025 3:00 AM CDT Temperature 36.3 C (97.4 F) 04/04/2025 12:09 AM CDT Respiratory Rate 18 04/04/2025 12:09 AM CDT Oxygen Saturation 91% 04/04/2025 2:45 AM CDT Inhaled Oxygen Concentration - - Weight 59.9 kg (132 lb) 04/04/2025 12:09 AM CDT Height 152.4 cm (5') 04/04/2025 12:09 AM CDT Body Mass Index 25.78 04/04/2025 12:09 AM CDT Plan of Treatment Upcoming Encounters Date Type Department Care Team (Late st Contact Info) Description 05/31/2025 10:45 AM CDT Office Visit [facility] - Internal Medicine - [place] [address] [place] [phone] Mina Alejo MD [address] [place] [address] Health Maintenance Due Date Last Done Comments Hepatitis C Virus (HCV) Screening 1945 Immunochemical Fecal Occult Blood 1996 DEXA Bone Density 05/26/2023 05/26/2021, 07/05/2018 Cologuard 05/29/2024 05/29/2021 SARS-COV-2 Immunization ( season) 2024 Diabetes: Hemoglobin A1c 05/30/2025 025, 08/15/2024, 01/27/2024, Additional history exists Colorectal Cancer Screening 06/08/2025 Retired - Colonoscopy High Risk 06/08/2025 06/08/2022 Diabetes: Eye Exam 09/07/2025 09/07/2024, 0 08/26/2023, 08/21/2022, Additional history exists Diabetes: Foot Exam 03/01/2026 03/01/2025, 01/27/2024, 01/20/2023 Diabetes: Nephropathy Screening 04/04/2026 04/04/2025, 08/15/2024, 02/25/2024, Additional history exists Td Immunization Every 10 Years (Adults With 1 Tdap) 05/12/2031 05/12/2021 Colonoscopy 06/08/2032 06/08/2022, 05/29, 06/08/2022, Additional history exists DTaP/Tdap/Td Immunization Discontinued 05/12/2021 Pneumococcal Immunization (50+ years) Completed 11/05/2023 Pneumococcal Immunization Combined Discontinued 11/05/2023 Respiratory Syncytial Virus (RSV) Immunization (Adult) Completed 11/05/2023, 11/01/2023 Zoster Immunization Completed 01/11/2024, 11/09/2023, 11/05/2023, Additional history exists Influenza Immunization Completed , 11/05/2023, 09/10/2023, Additional history exists Mammogram Discontinued 09/20/2024, 05/30, 05/12/2022, Additional history exists Hepatitis B Immunization Aged Out No longer eligible based on patient's age to complete this topic Human Papillomavirus (HPV) Immunization Aged Out No longer eligible based on patient's age to complete this topic Meningococcal Immunization (ACWY) Aged Out No longer eligible based on patient's age to complete this topic Rotavirus Immunization Aged Out No lo nger eligible based on patient's age to complete this topic Interventions Community Resource Recommendations Community Resource Services Recommended Domains Addressed Status Status Reason/Outcome Date/Time [facility] Housing, Public Housing, Residential Housing Housing Stability Recommended 11/23/2024 10:20 PM SENIOR ENVIRONMENTAL CONSULTANT from Last 12 Months Procedures Procedure Name Priority Date/Time Associated Diagnosis Comments MRI - LOWER EXTREMITY GENERIC 04/27/2025 12:00 AM CDT XR - LOWER EXTREMITY 04/27/2025 12:00 AM CDT PAIN CONSULT 04/16/2025 12:00 AM CDT URINALYSIS REFLEX IF INDICATED BY ABNORMAL RESULTS STAT 04/04/2025 2:30 AM CDT CULTURE, URINE STAT 04/04/2025 2:[address] ABDOMEN PELVIS W/ CONTRAST Stat with Interpretation 04/04/2025 1:42 AM CDT GOLD TOP TUBE STAT 04/04/2025 12:33 AM CDT BLUE TOP TUBE STAT 04/04/2025 12:33 AM CDT CBC WITH AUTO DIFFERENTIAL STAT 04/04/2025 12:33 AM CDT EXTRA TUBES STAT 04/04/2025 12:33 AM CDT CMP (COMPREHENSIVE METABOLIC PANEL) STAT 04/04/2025 12:33 AM CDT COMPLETE BLOOD COUNT (CBC) WITH DIFF STAT 04/04/2025 12:33 AM CDT RSV,SARS-COV-2,INF LUENZA A&B BY PCR STAT 04/04/2025 12:19 AM CDT MRI ABDOMEN W/WO CONTRAST Routine 03/27/2025 9:46 AM CDT Pancreatic mass POCT CREATININE Routine 03/27/2025 9:11 AM CDT PAIN CONSULT 03/05/2025 12:00 AM CDT POCT GLYCOSYLATED HEMOGLOBIN Routine 11/30/2024 10:45 AM SENIOR ENVIRONMENTAL CONSULTANT Type 2 diabetes mellitus with complication, without long-term current use of insulin (HCC) [facility] SCREENING BILATERAL DIGITAL W CAD W SHE Routine 09/20/2024 8:21 AM CDT Visit for screening mammogram DILATED EYE EXAM 09/07/2024 12:00 AM CDT COLOGUARD Routine 05/29/2021 9:30 AM CDT Screening for colon cancer [facility] BONE DENSITOMETRY AXIAL SKELETON Routine 05/26/2021 2:19 PM CDT Asymptomatic postmenopausal status Menopausal and postmenopausal disorder Encounter for screening for osteoporosis from Last 3 Months or Most Recently Relevant to Health Maintenance Results * XR - LOWER EXTREMITY (04/27/2025 12:00 AM CDT) 04/27/2025 us Provider Scan IMG DIAGNOSTIC ORDERABLES Final Result Performing Organization Address [facility] de Phone Number SCAN * MRI - LOWER EXTREMITY GENERIC (04/27/2025 12:00 AM CDT) 04/27/2025 us Provider Scan IMG MR ORDERABLES Final Result Performing Organization Address [facility] de Phone Number SCAN * PAIN CONSULT (04/16/2025 12:00 AM CDT) Only the most recent of2 resultswithin the time period is included. 04/16/2025 Mina Alejo MD GENERIC SCAN ORDERS CONSULT Final Result Performing Organization Address [facility] Co de Phone Number SCAN * (ABNORMAL) URINALYSIS REFLEX IF INDICATED BY ABNORMAL RESULTS (04/04/2025 2:30 AM CDT) SPECIFIC GRAVITY 1.015 1.003 - 1.030 04/04/2025 3:[address] [facility] URINE PH 5.0 5.0 - 9.0 04/04/2025 3:[address] [facility] WBC ESTERASE 25 /ul(A) Negative 04/04/2025 3:[address] [facility] NITRITE Negative Negative 04/04/2025 3:[address] [facility] PROTEIN, RANDOM URINE 15 mg/dL(A) Negative 04/04/2025 3:[address] [facility] URINE GLUCOSE, QUAL 1000 mg/dL(A) Negative 04/04/2025 3:[address] [facility] URINE KETONES Negative Negative 04/04/2025 3:[address] [facility] UROBILINOGEN Normal Normal mg/dL 04/04/2025 3:[address] [facility] URINE BLOOD Negative Negative eugene/ul 04/04/2025 3:[address] [facility] URINALYSIS COLOR Yellow 04/04/20 3:[address] [facility] URINALYSIS CLARITY Clear 04/04/2025 3:[address] [facility] WBC (Urine) 11-20(A) Negative, 0-5 /hpf 04/04/2025 3:[address] [facility] URINE RBC'S Negative Negative, 0-2 /hpf 04/04/2025 3:[address] [facility] EPITHELIAL CELLS Small amount /lpf 2024 3:[address] [facility] BACTERIA, URINE Many(A) Negative /hpf 04/04/2025 3:[address] [facility] URINE YEAST Few Budding Yeast 04/04/2025 3:[address] [facility] Urine URINE SPECIMEN OBTAINED BY CLEAN CATCH PROCEDURE / Unknown Non-Phlebotomy Collection / Unknown 04/04/2025 2:30 AM CDT 04/04/2025 2:38 AM CDT us Bill Eid MD URINE ORDERABLES Final Re sult Performing Organization Address City/[facility]/ZIP Co de Phone Number [facility] [address] [place] [address] * Culture, Urine (04/04/2025 2:30 AM CDT) CULTURE RESULTS ESCHERICHIA COLI 04/06/2025 10:38 AM CDT [facility] Urine URINE SPECIMEN OBTAINED BY CLEAN CATCH PROCEDURE / Unknown Non-Phlebotomy Collection / Unknown 04/04/2025 2:30 AM CDT 04/04/2025 2:38 AM CDT Narrative Organism Antibiotic Method Susceptibility Escherichia coli Ampicillin [facility] VITEK II <=2 mcg/ml: Susceptible Escherichia coli Ampicillin/sulbactam [facility] II <=2 mcg/ml: Susceptible Escherichia coli Cefepime [facility] II <=0.12 mcg/ml: Susceptible Escherichia coli Ceftriaxone [facility] II <=0.25 mcg/ml: Susceptible Escherichia coli Gentamicin [facility] II <=1 mcg/ml: Susceptible Escherichia coli Levofloxacin [facility] II <=0.12 mcg/ml: Susceptible Escherichia coli Meropenem [facility] II <=0.25 mcg/ml: Susceptible Escherichia coli Nitrofurantoin [facility] II <=16 mcg/ml: Susceptible Escherichia coli Piperacillin/Tazobactam [facility] II <=4 mcg/ml: Susceptible Escherichia coli Trimeth/Sulfamethoxazole [facility] I I <=20 mcg/ml: Susceptible us Bill Eid MD MICROBIOLOGY - GENERAL OR DERABLES Final Result [facility] [address] [place] [address], [place] * CT ABDOMEN PELVIS W/ CONTRAST (04/04/2025 1:42 AM CDT) Anatomical Region Laterality Modality Abdomen N/A Computed Tomogra phy 04/04/2025 1:57 AM CDT Impressions 04/04/2025 2:00 AM CDT IMPRESSION: Liquid contents in the colon without wall thickening/inflammation. No evidence of obstruction. Narrative 04/04/2025 2:00 AM CDT EXAM DESCRIPTION: CT ABDOMEN PELVIS W/ CONTRAST REASON FOR STUDY: Abdominal pain with nausea, vomiting, diarrhea for several hours TECHNIQUE: CT scan of the abdomen and pelvis performed with intravenous and without oral contrast using helical scanning technique with dynamic intravenous contrast injection. Reconstructed coronal and sagittal MPR images reviewed. All images stored on PACS. Automated exposure control was used as a dose optimization technique for this examination. CONTRAST TYPE/DOSE: 75mL of IOPAMIDOL 76 % IV SOLN injected via Intravenous COMPARISON: 04/30/2023 FINDINGS: LOWER CHEST: Lung bases clear. Heart size normal. Coronary artery calcifications. No effusion. LIVER/BILIARY: Liver unremarkable. Biliary tree normal in caliber. GALLBLADDER: Absent. SPLEEN: Normal. PANCREAS: Moderate atrophy. ADRENAL GLANDS: Adenomas. KIDNEYS/URINARY TRACT: Left renal cyst. Ureters and bladder appear normal. GI: Moderate hiatal hernia. Stomach and small bowel otherwise appear normal. Liquid contents in the colon without wall thickening or inflammation. Appendix not seen. OTHER ABDOMINAL/PELVIS: Major vascular structures are grossly patent and normal in caliber. No enlarged lymph node or free fluid. MSK: Moderate disc disease and facet arthropathy. Hip and SI joint arthrosis. BODY WALL: Unremarkable. THIS IS AN ELECTRONICALLY VERIFIED FINAL REPORT 04/04/2025 1:57 AM - Electronically signed by Chris Bowen M.D. AR: LENNY Report ID: [id number] Reading Location: [id number] Procedure Note Chris Bowen MD - 04/04/2025 EXAM DESCRIPTION: CT ABDOMEN PELVIS W/ CONTRAST REASON FOR STUDY: Abdominal pain with nausea, vomiting, diarrhea for several hours TECHNIQUE: CT scan of the abdomen and pelvis performed with intravenous and without oral contrast using helical scanning technique with dynamic intravenous contrast injection. Reconstructed coronal and sagittal MPR images reviewed. All images stored on PACS. Automated exposure control was used as a dose optimization technique for this examination. CONTRAST TYPE/DOSE: 75mL of IOPAMIDOL 76 % IV SOLN injected via Intravenous COMPARISON: 04/30/2023 FINDINGS: LOWER CHEST: Lung bases clear. Heart size normal. Coronary artery calcifications. No effusion. LIVER/BILIARY: Liver unremarkable. Biliary tree normal in caliber. GALLBLADDER: Absent. SPLEEN: Normal. PANCREAS: Moderate atrophy. ADRENAL GLANDS: Adenomas. KIDNEYS/URINARY TRACT: Left renal cyst. Ureters and bladder appear normal. GI: Moderate hiatal hernia. Stomach and small bowel otherwise appear normal. Liquid contents in the colon without wall thickening or inflammation. Appendix not seen. OTHER ABDOMINAL/PELVIS: Major vascular structures are grossly patent and normal in caliber. No enlarged lymph node or free fluid. MSK: Moderate disc disease and facet arthropathy. Hip and SI joint arthrosis. BODY WALL: Unremarkable. THIS IS AN ELECTRONICALLY VERIFIED FINAL REPORT 04/04/2025 1:57 AM - Electronically signed by Chris Bowen M.D. AR: LENNY Report ID: [id number] Reading Location: [id number] IMPRESSION: Liquid contents in the colon without wall thickening/inflammation. No evidence of obstruction. Bill Eid MD IMG CT ORDERABLES Final R esult * Gold Top Tube (04/04/2025 12:33 AM CDT) Blood No Phlebotomy Charged / Unknown 04/04/2025 12:33 AM CDT 04/04/2025 12:42 AM CDT Bill Eid MD CHEMISTRY ORDERABLES Gia l Result Performing Organization Address City/[facility] Co de Phone Number [facility] [address] [place] [address] * Blue Top Tube (04/04/2025 12:33 AM CDT) Blood No Phlebotomy Charged / Unknown 04/04/2025 12:33 AM CDT 04/04/2025 12:42 AM CDT Bill Eid MD HEMATOLOGY ORDERABLES Fin al Result Performing Organization Address City/[facility] Co de Phone Number [facility] [address] [place] [address] * (ABNORMAL) CBC with Auto Differential (04/04/2025 12:33 AM CDT) [facility] WBC 19.60(H) 4.00 - 12.00 10(3)/mcL 04/04/2025 12:46 AM CDT [facility] RBC 5.70(H) 3.80 - 5.30 10(6)/mcL 04/04/2025 12:46 AM CDT [facility] HEMOGLOBIN (HGB) 16.4(H) 12.0 - 15.8 g/dL 04/04/2025 12:46 AM CDT [facility] HEMATOCRIT (HCT) 49.8(H) 36.0 - 47.0 % 04/04/2025 12:46 AM CDT [facility] MCV 87.4 82.0 - 96.0 fL 04/04/2025 12:46 AM CDT [facility] MCH 28.8 26.0 - 34.0 pg 04/04/2025 12:46 AM CDT [facility] MCHC 32.9 31.0 - 36.0 g/dL 04/04/2025 12:46 AM CDT [facility] PLATELET COUNT 263 140 - 440 10(3)/[facility] 04/04/2025 12:46 AM CDT [facility] RDW 14.1 11.8 - 15.5 % 04/04/2025 12:46 AM CDT [facility] MPV 8.8(L) 9.7 - 12.4 fL 04/04/2025 12:46 AM CDT [facility] NEUTROPHILS 85.4(H) 47.0 - 73.0 % 04/04/2025 12:46 AM CDT [facility] LYMPHOCYTES 9.1(L) 18.0 - 42.0 % 04/04/2025 12:46 AM CDT [facility] MONOCYTES 4.2 4.0 - 12.0 % 04/04/2025 12:46 AM CDT [facility] EOSINOPHILS 0.8 0.0 - 5.0 % 04/04/2025 12:46 AM CDT [facility] BASOPHILS 0.5 0.0 - 1.0 % 04/04/2025 12:46 AM CDT [facility] ABSOLUTE NEUTROPHILS 16.75(H) 1.60 - 7.70 10(3)/mcL 04/04/2025 12:46 AM CDT [facility] ABSOLUTE LYMPHOCYTES 1.78 1.30 - 3.20 10(3)/[facility] 04/04/2025 12:46 AM CDT [facility] ABSOLUTE MONOCYTES 0.82 0.20 - 1.00 10(3)/[facility] 04/04/2025 12:46 AM CDT [facility] ABSOLUTE EOSINOPHIL 0.16 0.00 - 0.40 10(3)/[facility] 04/04/2025 12:46 AM CDT [facility] ABSOLUTE BASOPHILS 0.09 0.00 - 0.10 10(3)/[facility] 04/04/2025 12:46 AM CDT [facility] NRBC PER 100 WBC 0 04/04/20 25 12:46 AM CDT [facility] Blood Venipuncture / Unknown 04/04/2025 12:33 AM CDT 04/04/2025 12:43 AM CDT us Bill Eid MD HEMATOLOGY ORDERABLES Fin al Result [facility] [address] [place] [address] * (ABNORMAL) Comprehensive Metabolic Panel (Cmp) [id number] (04/04/2025 12:33 AM CDT) SODIUM 142 136 - 145 mmol/L 04/04/2025 1:05 AM CDT [facility] POTASSIUM 4.5 3.5 - 5.1 mmol/L 04/04/2025 1:[address] [facility] CHLORIDE 110(H) 98 - 107 mmol/L 04/04/2025 1:[address] [facility] CO2, VENOUS 22 22 - 30 mmol/L 04/04/2025 1:[address] [facility] ANION GAP 14.5 <18.0 mmol/L 04/04/2025 1:[address] [facility] GLUCOSE 166(H) 70 - 99 mg/dL 04/04/2025 1:[address] [facility] BUN 24(H) 10 - 20 mg/dL 04/04/2025 1:[address] [facility] CREATININE, BLOOD 1.11(H) 0.60 - 1.00 mg/dL 04/04/2025 1:[address] [facility] BUN/CREATININE RATIO 22(H) 12 - 20 ratio 04/04/2025 1:[address] [facility] TOTAL PROTEIN 8.1(H) 6.0 - 8.0 g/dL 04/04/2025 1:[address] [facility] ALBUMIN 4.2 3.5 - 5.0 g/dL 04/04/2025 1:[address] [facility] A/G RATIO 1.1 1.0 - 2.2 04/04/2025 1:[address] [facility] CALCIUM 9.6 8.7 - 10.5 mg/dL 04/04/2025 1:[address] [facility] T BILI 0.5 0.2 - 1.2 mg/dL 04/04/2025 1:[address] [facility] SGOT (AST) 19 <43 U/L 04/04/2025 1:[address] [facility] SGPT (ALT) 13 <56 U/L 04/04/2025 1:[address] [facility] ALKALINE PHOSPHATASE 107 40 - 150 U/L 04/04/2025 1:[address] [facility] GFR, ESTIMATED 51(L) >=60 04/04/2025 1:05 AM CDT [facility] Comment: Creatinine Clearance is the preferred criteria for selecting drug dose adjustments in renally impaired patients. The GFR is provided as additional pertinent clinical information. GFR is reported in mL/min/1.73 sq m. Calculation based on the Chronic Kidney Disease Epidemiology Collaboration (CKD- EPI) equation refit without adjustment for race. GFR, EST. 58(L) >=60 025 1:05 AM CDT [facility] GFR, EST. NONAFRICAN 48(L) >=60 04/04/2025 1:05 AM CDT [facility] Blood Venipuncture / Unknown 04/04/2025 12:33 AM CDT 04/04/2025 12:43 AM CDT Bill Eid MD CHEMISTRY ORDERABLES Gia l Result [facility] [address] [place] [address] * RSV,SARS-COV-2,INFLUENZA A&B BY PCR (04/04/2025 12:19 AM CDT) FLU A Negative Negative, Error 04/04/2025 1:08 AM CDT [facility] FLU B Negative Negative 04/04/2025 1:08 AM CDT [facility] RESP SYNC VIRUS Negative Negative 1:08 AM CDT [facility] SARSCOV2 NOT DETECTED (Reference Range for this test is Not Detected) 04/04/2025 1:08 AM CDT [facility] Comment:This test was perfor med by a Reverse Gospel Worker PCR Method. 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 No suspicious features. Stable bilateral adrenal adenomas. Narrative 04/02/2025 4:32 PM CDT EXAM DESCRIPTION: MRI ABDOMEN W/WO CONTRAST REASON FOR STUDY: surveillance pancreatic lesion. Prior MRIs 02/24/24 } TECHNIQUE: MRI of the abdomen performed without and with intravenous contrast according to the pancreas protocol protocol. All images stored on PACS. CONTRAST TYPE/DOSE: 13mL of GADOBENATE DIMEGLUMINE 529 MG/ML IV SOLN injected via Intravenous COMPARISON: MRI abdomen 02/24/2024 REFERENCE: Per ACR white paper recommendations, unless otherwise specified no follow-up imaging is recommended for incidental renal and adrenal lesions per consensus recommendations based on imaging criteria. Further lab evaluation could be pursued based on clinical findings. FINDINGS: LOWER CHEST: No effusion. LIVER: Normal size. No mass. No cysts. GALLBLADDER: Surgically absent BILE DUCTS: No intrahepatic or extrahepatic ductal dilatation. SPLEEN: Normal size. No focal lesions. PANCREAS: Redemonstration of nonenhancing cystic lesion measuring 11 mm in the head and 4 mm in the body of the pancreas demonstrating connection to the consistent with IPMN, (, 01/17, 04/18). No suspicious lesion. No adjacent inflammation or peripancreatic fluid collections. Pancreatic duct not dilated ADRENALS: Stable bilateral adrenal adenomas KIDNEYS/URINARY TRACT: No solid masses. Simple left renal cysts. No hydronephrosis or hydroureter. Symmetric enhancement. GI: No visualized abnormality. PERITONEUM: No ascites. RETROPERITONEUM: No mass or adenopathy. VASCULATURE: No abdominal aortic aneurysm. MUSCULOSKELETAL: No acute findings. OTHER: No other abnormality. THIS IS AN ELECTRONICALLY VERIFIED FINAL REPORT 04/02/2025 4:30 PM - Electronically signed by Erika Beltran M.D. FT: FT Report ID: [id number] Reading Location: [id number] Procedure Note Erika Amanda MD - 04/02/2025 EXAM DESCRIPTION: MRI ABDOMEN W/WO CONTRAST REASON FOR STUDY: surveillance pancreatic lesion. Prior MRIs 02/24/24 } TECHNIQUE: MRI of the abdomen performed without and with intravenous contrast according to the pancreas protocol protocol. All images stored on PACS. CONTRAST TYPE/DOSE: 13mL of GADOBENATE DIMEGLUMINE 529 MG/ML IV SOLN injected via Intravenous COMPARISON: MRI abdomen 02/24/2024 REFERENCE: Per ACR white paper recommendations, unless otherwise specified no follow-up imaging is recommended for incidental renal and adrenal lesions per consensus recommendations based on imaging criteria. Further lab evaluation could be pursued based on clinical findings. FINDINGS: LOWER CHEST: No effusion. LIVER: Normal size. No mass. No cysts. GALLBLADDER: Surgically absent BILE DUCTS: No intrahepatic or extrahepatic ductal dilatation. SPLEEN: Normal size. No focal lesions. PANCREAS: Redemonstration of nonenhancing cystic lesion measuring 11 mm in the head and 4 mm in the body of the pancreas demonstrating connection to the consistent with IPMN, (, 01/17, 04/18). No suspicious lesion. No adjacent inflammation or peripancreatic fluid collections. Pancreatic duct not dilated ADRENALS: Stable bilateral adrenal adenomas KIDNEYS/URINARY TRACT: No solid masses. Simple left renal cysts. No hydronephrosis or hydroureter. Symmetric enhancement. GI: No visualized abnormality. PERITONEUM: No ascites. RETROPERITONEUM: No mass or adenopathy. VASCULATURE: No abdominal aortic aneurysm. MUSCULOSKELETAL: No acute findings. OTHER: No other abnormality. THIS IS AN ELECTRONICALLY VERIFIED FINAL REPORT 04/02/2025 4:30 PM - Electronically signed by Erika Beltran M.D. 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 No suspicious features. Stable bilateral adrenal adenomas. Mina Alejo MD IMG MR ORDERABLES Final Res ult * POCT Creatinine (03/27/2025 9:11 AM CDT) CREATININE - POCT 1.0 0.6 - 1.3 mg/dL 03/27/2025 9:29 AM CDT [facility] Blood 03/27/2025 9:11 AM CDT 03/27/2025 9:29 AM CDT None Provider POINT OF CARE TESTING Final Resu lt [facility] [place] [address] * (ABNORMAL) POCT GLYCOSYLATED HEMOGLOBIN (11/30/2024 10:45 AM SENIOR ENVIRONMENTAL CONSULTANT) HGB-A1C 6.7(A) 4 - 6 % 11/30/2024 10:4 5 AM SENIOR ENVIRONMENTAL CONSULTANT us Mina Alejo MD POINT OF CARE TESTING (MANU AL) Final Result * FREDI SCREENING BILATERAL DIGITAL W CAD W SHE (09/20/2024 8:21 AM CDT) Anatomical Region Laterality Modality breast Bilateral Mammography 09/20/2024 7:58 AM CDT Narrative 09/21/2024 1:12 PM CDT - FREDI SCREENING BILATERAL DIGITAL W CAD W SHE BILATERAL DIGITAL SCREENING MAMMOGRAM 3D/2D WITH CAD WITH MEDIOLATERAL OBLIQUE CRANIOCAUDAL: 09/20/2024 The study was acquired using digital technology and interpreted from soft copy. Current study was also evaluated with ICAD version 7.2. 2D digital mammographic views, as well as 3D digital tomosynthesis were performed in the CC and MLO projections. CLINICAL: Routine screening. Patient has no complaints. No personal history of cancer. No family history of breast cancer. COMPARISONS: Comparison is made to exams dated: 06/17/2023, 05/12/2022, and 03/17/2021 [facility]. BREAST TISSUE:There are scattered areas of fibroglandular density. FINDINGS: There are benign vascular calcifications in both breasts. No significant masses, calcifications, or other findings are seen in either breast. There has been no significant interval change. IMPRESSION: BENIGN There is no mammographic evidence of malignancy. A 1 year screening mammogram is recommended. A letter will be sent to the patient with these results. The patient will be entered into a reminder system with a target due date of 1 year for her next screening exam. Electronically signed by: Eduarda pedersen/tory:09/20/2024 23:02:34 Service Parts Coordinator(s): RT Chip(R)(M), [facility] letter sent: Normal Exam Reading location: [place] [facility] Mammogram BI-RADS: Category 2: Benign Procedure Note Eduarda Shoemaker MD - 09/21/2024 - FREDI SCREENING BILATERAL DIGITAL W CAD W SHE BILATERAL DIGITAL SCREENING MAMMOGRAM 3D/2D WITH CAD WITH MEDIOLATERAL OBLIQUE CRANIOCAUDAL: 09/20/2024 The study was acquired using digital technology and interpreted from soft copy. Current study was also evaluated with ICAD version 7.2. 2D digital mammographic views, as well as 3D digital tomosynthesis were performed in the CC and MLO projections. CLINICAL: Routine screening. Patient has no complaints. No personal history of cancer. No family history of breast cancer. COMPARISONS: Comparison is made to exams dated: 06/17/2023, 05/12/2022, and 03/17/2021 [facility]. BREAST TISSUE:There are scattered areas of fibroglandular density. FINDINGS: There are benign vascular calcifications in both breasts. No significant masses, calcifications, or other findings are seen in either breast. There has been no significant interval change. IMPRESSION: BENIGN There is no mammographic evidence of malignancy. A 1 year screening mammogram is recommended. A letter will be sent to the patient with these results. The patient will be entered into a reminder system with a target due date of 1 year for her next screening exam. Electronically signed by: Eduarda pedersen/rajnirad:09/20/2024 23:02:34 Service Parts Coordinator(s): Nadia Purcell RT(R)(M), [facility] letter sent: Normal Exam Reading location: [place] Mammogram BI-RADS: Category 2: Benign us Mina Alejo MD IMG MAMMO ORDERABLES Final Result * HM DILATED EYE EXAM (09/07/2024 12:00 AM CDT) 09/07/2024 us Provider Scan PROCEDURE/MINOR SURGICAL ORDERAB LES Final Result SCAN * (ABNORMAL) COLOGUARD (05/29/2021 9:30 AM CDT) Cologuard Positive( A) Negative [employer] Comment: POSITIVE TEST RESULT. A positive Cologuard result should be followed with a colonoscopy or visual examination of the colon. The normal value (reference range) for this assay is negative. TEST DESCRIPTION: Composite algorithmic analysis of stool DNA-biomarkers with hemoglobin immunoassay. Quantitative values of individual biomarkers are not reportable and are not associated with individual biomarker result reference ranges. Cologuard is intended for colorectal cancer screening of adults of either sex, 45 years or older, who are at average-risk for colorectal cancer (CRC). Cologuard has been approved for use by the U.S. FDA. The performance of Cologuard was established in a cross sectional study of average-risk adults aged 50-84. Cologuard performance in patients ages 45 to 49 years was estimated by sub-group analysis of near-age groups. Colonoscopies performed for a positive result may find as the most clinically significant lesion: colorectal cancer [4.0%], advanced adenoma (including sessile serrated polyps greater than or equal to 1cm diameter) [20%] or non- advanced adenoma [31%]; or no colorectal neoplasia [45%]. These estimates are derived from a prospective cross-sectional screening study of 10,000 individuals at average risk for colorectal cancer who were screened with both Cologuard and colonoscopy. (Gumaro Salgado al, N Engl J Med 2014;370(14):6264-2015.) Cologuard may produce a false negative or false positive result (no colorectal cancer or precancerous polyp present at colonoscopy follow up). A negative Cologuard test result does not guarantee the absence of CRC or advanced adenoma (pre-cancer). The current Cologuard screening interval is every 3 years. ([place] [employer] and [place].S. Multi-Society Task Force). Cologuard performance data in a 10,000 patient pivotal study using colonoscopy as the reference method can be accessed at the following location: www.[employer]/results. Additional description of the Cologuard test process, warnings and precautions can be found at www.[employer].datatracker. Stool specimen (specimen) 05/29/2021 9:30 AM CDT 05/30/2021 10:22 AM CDT Joanna Hunt PAC BODY FLUIDS & STO OLS ORDERABLES Final Result [employer], [facility] [address] [place] [address], [employer] [address] [place] [address] * FREDI BONE DENSITOMETRY AXIAL SKELETON (05/26/2021 2:19 PM CDT) Anatomical Region Laterality Modality BODY N/A Other 05/26/2021 4:26 PM CDT Impressions 05/26/2021 4:29 PM CDT IMPRESSION: 1. Low bone mass by WHO criteria. 2. The WHO fracture risk assessment tool (FRAX) indicates that the 10 year risk for a major osteoporotic fracture is 14.5% and the 10 year risk for a hip fracture is 4.1%. The FRAX tool has not been validated in patients currently or previously treated with pharmacotherapy for osteoporosis. In such patients, clinical judgement must be exercised in interpreting FRAX scores as the fracture risk may be overestimated. REFERENCE: Bone mineral density: Normal (T-score above or = -1.0) Low bone mass (T-score between -1.0 and -2.5) replaces the previously used term osteopenia Osteoporosis (T-score = or below -2.5) Medical evaluation for secondary causes of low bone mineral density may be appropriate. FRAX is a World Health Organization validated fracture risk assessment tool that calculates a person's 10 year probability of a major osteoporosis related fracture and hip fracture. According to the National Osteoporosis Foundation guidelines, postmenopausal women and men age 50 or older with low bone mass and a 10 year probability of a major osteoporosis related fracture = or greater than 20% or a 10 year probability of a hip fracture = or greater than 3% should be considered for treatment. For further information, including treatment recommendations, please refer to the 2013 ISCD Official Positions (http://www.iscd.org) and the NOF's Clinician's Guide to Prevention and Treatment of Osteoporosis (http://www.nof.org/professionals/clinical-guidelines) Narrative 05/26/2021 4:29 PM CDT EXAM DESCRIPTION: FREDI BONE DENSITOMETRY AXIAL SKELETON REASON FOR STUDY: Post-menopausal female, screening for osteoporosis. 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 LEFT HIP: Current Total BMD is 0.844 g/cm2 T-score is -1.3 Most recent prior Total BMD was 0.878 g/cm2 There has been a 3.9% decrease in BMD which is statistically significant. Current femoral neck BMD is 0.735 g/cm2 T-score is -2.2 THIS IS AN ELECTRONICALLY VERIFIED FINAL REPORT 05/26/2021 4:26 PM - Electronically signed by Will Huntley M.D. AB: Report ID: [id number] Reading Location: [id number] Procedure Note Will Huntley MD - 05/26/2021 EXAM DESCRIPTION: FREDI BONE DENSITOMETRY AXIAL SKELETON REASON FOR STUDY: Post-menopausal female, screening for osteoporosis. 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 LEFT HIP: Current Total BMD is 0.844 g/cm2 T-score is -1.3 Most recent prior Total BMD was 0.878 g/cm2 There has been a 3.9% decrease in BMD which is statistically significant. Current femoral neck BMD is 0.735 g/cm2 T-score is -2.2 THIS IS AN ELECTRONICALLY VERIFIED FINAL REPORT 05/26/2021 4:26 PM - Electronically signed by Will Huntley M.D. AB: Report ID: [id number] Reading Location: [id number] IMPRESSION: 1. Low bone mass by WHO criteria. 2. The WHO fracture risk assessment tool (FRAX) indicates that the 10 year risk for a major osteoporotic fracture is 14.5% and the 10 year risk for a hip fracture is 4.1%. The FRAX tool has not been validated in patients currently or previously treated with pharmacotherapy for osteoporosis. In such patients, clinical judgement must be exercised in interpreting FRAX scores as the fracture risk may be overestimated. REFERENCE: Bone mineral density: Normal (T-score above or = -1.0) Low bone mass (T-score between -1.0 and -2.5) replaces the previously used term osteopenia Osteoporosis (T-score = or below -2.5) Medical evaluation for secondary causes of low bone mineral density may be appropriate. FRAX is a World Health Organization validated fracture risk assessment tool that calculates a person's 10 year probability of a major osteoporosis related fracture and hip fracture. According to the National Osteoporosis Foundation guidelines, postmenopausal women and men age 50 or older with low bone mass and a 10 year probability of a major osteoporosis related fracture = or greater than 20% or a 10 year probability of a hip fracture = or greater than 3% should be considered for treatment. For further information, including treatment recommendations, please refer to the 2013 ISCD Official Positions (http://www.iscd.org) and the NOF's Clinician's Guide to Prevention and Treatment of Osteoporosis (http://www.nof.org/professionals/clinical-guidelines) Joanna Vera Gilbert PAC IMG DEXA ORDERABL ES Final Result from Last 3 Months or Most Recently Relevant to Health Maintenance Insurance MEDICARE C [employer] Care Teams Child Support Case Officer Relationship Specialty Start Date End Date Mina Alejo MD [address] [place] [address] PCP - General Internal Medicine 06/13/18 Jared Dee MD [address] [address] Consulting Physician Colon and Rectal Surgery 05/06/22
== END 2025-05-07 11:41 | disposition home or self-care (01) ==
PROVIDERS: Emergency Provider Nurse Practitioner; PCP Internal Medicine
DX: N39.0 Urinary tract infection, site not specified (principal); I10 Essential (primary) hypertension; E78.00 Pure hypercholesterolemia, unspecified; E11.9 Type 2 diabetes mellitus without complications; Z79.84 Long term (current) use of oral hypoglycemic drugs
CPT/HCPCS: 81003; 87086; 87186; 99213; G0463